=== PATIENT | female | born 1975 | race African-American/Black ===

== ENCOUNTER 2021-01-03 23:26 | Emergency (ER) | payer MEDICAID, OTHER ==
[~2021-01-03] VITALS: Ht 170.2 cm; Wt 80.0 kg
[2021-01-03] MEDS ORDERED: KETOROLAC 60MG/2ML VIAL IM ONE (23:45)
[2021-01-03] MEDS ORDERED: LIDOCAINE HCL 4% CREAM 76GM TUBE TP STA (23:45)
[2021-01-03] MEDS ORDERED: CYCLOBENZAPRINE 10MG TABLET PO ONE (23:45)
[2021-01-04] MEDS ORDERED: LIDO700A30 TP (01:41)
[2021-01-04] MEDS ORDERED: IBUP-2029 MT (01:41)
[2021-01-04] MEDS ORDERED: DIAZ2TAB MT (01:41)
[2021-01-04 03:00] VITALS: BP 158/94
== END 2021-01-04 03:09 | disposition home or self-care (01) ==
LOC: ER 23:26
DX: M54.2 Cervicalgia (principal); I10 Essential (primary) hypertension
CPT/HCPCS: 93005; 96372; 99283; J1885; Z7610

== ENCOUNTER 2022-05-06 14:24 | Emergency (ER) | payer MEDICAID ==
[~2022-05-06] VITALS: Ht 172.7 cm; Wt 78.0 kg
[~2022-05-06 14:24] MED LIST: DIAZ2TAB MT; IBUP-2029 MT; LIDO700A30 TP
[2022-05-06 14:45] VITALS: BP 152/88
[2022-05-06] MEDS ORDERED: ONDANSETRON HCL 4MG/2ML INJ IV STA (14:45)
[2022-05-06] MEDS ORDERED: SODIUM CHLORIDE 0.9% 1,000 ML IV ONE (14:45)
[2022-05-06] MEDS ORDERED: MORPHINE SULFATE 4 MG/ML CPJ (NOT FOR IM USE) IV STA (14:45)
[2022-05-06] MEDS ORDERED: KETOROLAC 30MG/ML VIAL IV STA (14:45)
[2022-05-06 16:08] LABS: HEMATOCRIT. 37.3 % (36.0-48.0); HEMOGLOBIN. 12.4 g/dL (12.0-16.0); MEAN CORPUSCULAR HEMOGLOBIN 29.4 pg (28.0-32.0); MEAN CORPUSCULAR VOLUME 88.6 fL (81.0-99.0); MEAN PLATELET VOLUME 8.4 fl (7.4-10.4); PLATELET 306 x1000/uL (130-400); RED BLOOD CELL COUNT 4.21 mill/uL (4.2-5.4)
[2022-05-06 16:18] LABS: CHLORIDE 106 mEq/L (98-107)
[2022-05-06 16:36] LABS: HCG SCREEN NEGATIVE
[2022-05-06 17:44] LABS: CLARITY URINE CLOUDY (CLEAR); COLOR URINE YELLOW (YELLOW); KETONES URINE TRACE (NEGATIVE); LEUKOCYTE ESTERASE URINE NEGATIVE (NEGATIVE); NITRITE URINE NEGATIVE (NEGATIVE); OCCULT BLOOD URINE 3+ (NEGATIVE); PROTEIN URINE 1+ (NEGATIVE); SPECIFIC GRAVITY URINE 1.028 (1.005-1.030)
[2022-05-06] MEDS ORDERED: CEPH500C2 MT (18:33)
[2022-05-06] MEDS ORDERED: HYDR-4001 MT (18:33)
[2022-05-06] MEDS ORDERED: TAMS-11 MT (18:33)
[2022-05-06] MEDS ORDERED: IBUP-2028 MT (18:33)
[2022-05-06] MEDS ORDERED: CEFTRIAXONE 1 G PREMIX 50 ML IV ONE (18:45)
[2022-05-07 00:44] LABS: PLATELET ESTIMATE NORMAL
== END 2022-05-06 18:51 | disposition home or self-care (01) ==
LOC: ER 14:35
DX: N39.0 Urinary tract infection, site not specified (principal); N20.2 Calculus of kidney with calculus of ureter; I10 Essential (primary) hypertension; R94.31 Abnormal electrocardiogram [ECG] [EKG]
CPT/HCPCS: 36415; 71045; 74176; 80053; 81003; 83690; 84703; 85025; 93005; 96361; 96374; 96375; 99285; J1885; J2270; J2405; J7030

== ENCOUNTER 2024-05-05 20:38 | Emergency (ER) | payer MEDICAID ==
[~2024-05-05] VITALS: Ht 172.7 cm; Wt 90.0 kg
[~2024-05-05 20:38] MED LIST changes: +CEPH500C2 MT; +HYDR-4001 MT; +IBUP-2028 MT; +TAMS-11 MT
[2024-05-05 20:44] VITALS: BP 148/76; PULSE 87; RESP 16; TEMP 97.8; O2SAT 99
[2024-05-05 22:58] LABS: BASOPHILS % 0.6 % (0.0-2.0); EOSINOPHILS % 0.9 % (0.0-5.0); HEMATOCRIT. 34.5 % (36.0-48.0); HEMOGLOBIN. 11.2 g/dL (12.0-16.0); LYMPHOCYTES % 15.4 % (20.0-50.0); MEAN CORPUSCULAR HEMOGLOBIN 27.8 pg (28.0-32.0); MEAN CORPUSCULAR HGB CONC 32.6 g/dL (31.0-37.0); MEAN CORPUSCULAR VOLUME 85.5 fL (81.0-99.0); MEAN PLATELET VOLUME 8.3 fl (7.4-10.4); MONOCYTES % 11.7 % (2.0-8.0); NEUTROPHILS % 71.4 % (40.0-76.0); PLATELET 284 x1000/uL (130-400); RED BLOOD CELL COUNT 4.04 mill/uL (4.2-5.4); RED CELL DISTRIBUTION WIDTH 15.7 % (11.6-14.6); WHITE BLOOD COUNT 9.2 x1000/uL (4.5-11.0)
[2024-05-05 23:07] LABS: POTASSIUM 3.9 mEq/L (3.5-5.1)
[2024-05-05 23:08] LABS: CALCIUM 9.2 mg/dL (8.7-10.4)
[2024-05-05 23:13] LABS: CREATININE 1.8 mg/dL (0.6-1.0)
== END 2024-05-06 00:01 | disposition left against medical advice (07) ==
LOC: ER 20:38
DX: R10.9 Unspecified abdominal pain (principal); Z53.21 Procedure and treatment not carried out due to patient leaving prior to being seen by health care provider
CPT/HCPCS: 36415; 80048; 85025